=== PATIENT | male | born 1945 | race Caucasian/White ===

== ENCOUNTER → 2020-04-20 11:07 | Outpatient (CLI) | payer OTHER, SELFPAY ==
--- NOTE | ~2020-04-20 | US_ITS ---
EXAMINATION: US venous doppler LE RT EXAM DATE: 04/20/2020 11:47 INDICATION: Right leg pain. TECHNIQUE: Multiple grayscale, color flow and Doppler images of the right lower extremity deep venous system were obtained and reviewed. Comparison is made to prior examination from 06/09/2018. FINDINGS: The right common femoral, femoral and profunda veins demonstrate normal color flow, respira tory variation, augmentation and compressibility. Compressibility, color flow confirmed within the r ight popliteal, posterior tibial, peroneal, and greater saphenous veins. IMPRESSION: 1. No right lower extremity deep venous thrombosis. Reviewed, dictated and finalized at location B.
== END ==
PROVIDERS: PCP Emergency Medicine; Visit Provider Emergency Medicine
DX: M79.661 Pain in right lower leg (principal)
CPT/HCPCS: 93971

== ENCOUNTER 2021-01-20 10:32 | Emergency (ER) | payer OTHER, SELFPAY ==
[2021-01-20 10:45] VITALS: BP 132/83; PULSE 81; RESP 18; TEMP 36.7; O2SAT 97
[2021-01-20 10:54] VITALS: BP 132/83; PULSE 81; RESP 18; TEMP 36.7; O2SAT 97
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
--- NOTE | 2021-01-20 11:50 | PC.NURSE ---
i and d done by provider. discussed in detail about life in . denied any suicidal or homicidal ideations. daughter here and at bedside. [facility]. daughter does go to home daily.
== END 2021-01-20 11:56 | disposition home or self-care (01) ==
PROVIDERS: Emergency Provider Nurse Practitioner; PCP Emergency Medicine
DX: K61.1 Rectal abscess (principal); F32.9 Major depressive disorder, single episode, unspecified; Z87.891 Personal history of nicotine dependence; F41.9 Anxiety disorder, unspecified; I25.10 Atherosclerotic heart disease of native coronary artery without angina pectoris; J44.9 Chronic obstructive pulmonary disease, unspecified; E78.5 Hyperlipidemia, unspecified; I10 Essential (primary) hypertension; I73.9 Peripheral vascular disease, unspecified; Z95.820 Peripheral vascular angioplasty status with implants and grafts; G47.30 Sleep apnea, unspecified
CPT/HCPCS: 46050; 87070; 87075; 87076; 87205; 99213; G0463

== ENCOUNTER 2021-07-03 06:02 | Emergency (ER) | payer OTHER, SELFPAY ==
[2021-07-03] VITALS (8 sets, daily range): BP systolic 117–145; BP diastolic 67–89; PULSE 74–92; RESP 17–24; TEMP 35.9; O2SAT 91–95
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
--- NOTE | 2021-07-03 07:31 | PC.NURSE ---
Assumed care. Small amount of oozing to right gums.
[2021-07-03 08:02] LABS: Basophils Absolute Auto 0.1 K/mm3 (0.0-0.1); Basophils Percent Auto 0.9 % (0.2-1.2); Eosinophils Absolute Auto 0.2 K/mm3 (0-0.3); Eosinophils Percent Auto 1.8 % (0-4.4); Hematocrit 44.3 % (42.0-52.0); Hemoglobin 13.8 g/dL (14.0-18.0); Immature Granulocyte Absolute 0.06 K/mm3 (0.00-0.031); Immature Granulocyte Percent A 0.7 % (0-0.5); Lymphocytes Percent Auto 26.1 % (18.3-44.2); Mean Corpuscular HGB Conc 31.2 g/dl (32-36); Mean Corpuscular Hemoglobin 29.7 pg (26-34); Mean Corpuscular Volume 95.3 fl (80-100); Mean Platelet Volume 10.2 fl (7.4-10.4); Monocytes Absolute Auto 0.8 K/mm3 (0.1-0.6); Monocytes Percent Auto 8.3 % (2.6-8.5); Neutrophils Absolute Auto 5.7 K/mm3 (1.3-6.7); Neutrophils Percent Auto 62.2 % (45.5-73.1); Platelet Count Result 256 k/mm3 (150-375); Red Blood Count 4.65 M/mm3 (4.6-6.20); White Blood Count 9.2 K/mm3 (4.5-10.0)
[2021-07-03 08:29] LABS: Anion Gap 9 mmol/L (8-16); Blood Urea Nitrogen 21 mg/dL (9-20); Calcium 9.7 mg/dL (8.4-10.2); Carbon Dioxide 29 mmol/L (22-30); Chloride 103 mmol/L (98-107); Estimated CRCL calculation 102 ml/min; Estimated Glomerular Filt Rate > 60; Glucose 113 mg/dL (65-110); Potassium 4.3 mmol/L (3.4-5.0); Sodium 141 mmol/L (137-145)
== END 2021-07-03 08:46 | disposition home or self-care (01) ==
PROVIDERS: Emergency Provider Emergency Medicine; PCP Emergency Medicine
DX: K06.8 Other specified disorders of gingiva and edentulous alveolar ridge (principal); J44.9 Chronic obstructive pulmonary disease, unspecified; I25.10 Atherosclerotic heart disease of native coronary artery without angina pectoris; I73.9 Peripheral vascular disease, unspecified; E78.5 Hyperlipidemia, unspecified; I10 Essential (primary) hypertension; E66.9 Obesity, unspecified; Z68.33 Body mass index [BMI] 33.0-33.9, adult; G47.30 Sleep apnea, unspecified; F41.9 Anxiety disorder, unspecified; F32.9 Major depressive disorder, single episode, unspecified; F43.10 Post-traumatic stress disorder, unspecified; Z86.73 Personal history of transient ischemic attack (TIA), and cerebral infarction without residual deficits; Z95.5 Presence of coronary angioplasty implant and graft; Z79.82 Long term (current) use of aspirin; Z79.01 Long term (current) use of anticoagulants; Z87.891 Personal history of nicotine dependence
CPT/HCPCS: 36415; 80048; 85025; 99283

== ENCOUNTER 2021-12-31 15:08 | Emergency (ER) | payer OTHER, SELFPAY ==
--- NOTE | ~2021-12-31 | XR_ITS ---
EXAM: XR ribs LT 2V w CXR 2V HISTORY: FALL, ELBOW HIT LOWER RIBS, SHINGLE SPOTS LT LOWER BACK COMPARISON: X-ray chest 09/10/2019. FINDINGS: Stable pericardial calcification. Senescent changes in the lungs. Degenerative changes in the thoracic and lumbar spine. Normal bowel gas pattern. No osseous fracture or dislocation. IMPRESSION: No acute osseous finding in the left ribs. Reviewed, dictated and finalized at location K.
--- NOTE | ~2021-12-31 | CT_ITS ---
EXAMINATION: CT chest abdomen pelvis w con DATE: 12/31/2021 18:27 INDICATION: Fall, contusion over abdomen. TECHNIQUE: Computed tomography (CT) of the chest, abdomen, and pelvis was performed with 100 mL Omnip aque-350 intravenous contrast. Automated exposure control and iterative reconstruction technique were employed. The dose-length product was 1575.37 mGy-cm. COMPARISON: CTPA 09/11/2019. FINDINGS: CHEST: No thoracic aortic injury. No mediastinal hematoma. No pericardial effusion. No acute lung injury. No pleural effusion or pneumothorax. Emphysematous changes. Debris-filled and impacted bronchi, mostly within the right lower lobe bronchi , with scattered nodular and tree-in-bud opacities. Pericardial calcifications. Coronary artery calci fication. ABDOMEN/PELVIS: No solid organ injury. No evidence of bowel or mesenteric injury. No free fluid or free air. No retroperitoneal hematoma. Pelvic contents are atraumatic. Simple bilateral renal cysts and hypodensities that are too small to characterize. Bilateral renal va scular calcification versus nonobstructive calculi. Two saccular infrarenal abdominal aortic aneurysm s, measuring 3.2 and 3.3 cm. Bladder wall thickening likely due to outlet obstruction. Prostatomegaly . The rectum is dilated to 5.5 cm by formed stool. MUSCULOSKELETAL: No acute fracture. No fracture or traumatic malalignment of the thoracic or lumbar spine. IMPRESSION: 1. No traumatic finding detected in the chest, abdomen, or pelvis. 2. Pulmonary findings may represent chronic aspiration or atypical infection, including ABPA. 3. Saccular infrarenal abdominal aortic aneurysms measuring up to 3.3 cm in maximum transverse diamet er. Recommend follow-up CT abdomen pelvis with contrast in 3 years to assess for interval growth. 4. Possible fecal impaction. Reviewed, dictated and finalized at location K. IMPRESSION: 1. No traumatic finding detected in the chest, abdomen, or pelvis. 2. Pulmonary findings may represent chronic aspiration or atypical infection, i ncluding ABPA. 3. Saccular infrarenal abdominal aortic aneurysms measuring up to 3.3 cm in max imum transverse diameter. Recommend follow-up CT abdomen pelvis with contrast i n 3 years to assess for interval growth. 4. Possible fecal impaction.
[2021-12-31 15:10] VITALS: BP 137/78; PULSE 76; RESP 18; TEMP 36.6; O2SAT 96
--- NOTE | 2021-12-31 16:37 | PC.NURSE ---
EDP's made aware pt daughter out requesting pt be seen. [facility] for imaging received.
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
[2021-12-31] MEDS: LIDOCAINE 5% PATCH 1 PATCH TRANSDERM (17:32)
[2021-12-31 17:36] LABS: Basophils Absolute Auto 0.1 K/mm3 (0.0-0.1); Basophils Percent Auto 0.6 % (0.2-1.2); Eosinophils Absolute Auto 0.1 K/mm3 (0-0.3); Hematocrit 42.2 % (42.0-52.0); Hemoglobin 12.8 g/dL (14.0-18.0); Immature Granulocyte Absolute 0.06 K/mm3 (0.00-0.031); Immature Granulocyte Percent A 0.6 % (0-0.5); Lymphocytes Absolute Auto 2.75 K/mm3 (0.9-3.2); Lymphocytes Percent Auto 27.7 % (18.3-44.2); Mean Corpuscular HGB Conc 30.3 g/dl (32-36); Mean Corpuscular Hemoglobin 27.5 pg (26-34); Mean Corpuscular Volume 90.8 fl (80-100); Mean Platelet Volume 10.4 fl (7.4-10.4); Monocytes Absolute Auto 0.8 K/mm3 (0.1-0.6); Monocytes Percent Auto 7.8 % (2.6-8.5); Neutrophils Absolute Auto 6.2 K/mm3 (1.3-6.7); Neutrophils Percent Auto 62.3 % (45.5-73.1); Platelet Count Result 277 k/mm3 (150-375); Red Blood Count 4.65 M/mm3 (4.6-6.20); White Blood Count 9.9 K/mm3 (4.5-10.0)
[2021-12-31 17:45] LABS: Alanine Aminotransferase 29 U/L (4-50); Albumin Level 4.9 g/dL (3.5-5.1); Alkaline Phosphatase 116 U/L (38-126); Anion Gap 9 mmol/L (8-16); Aspartate Amino Transferase 31 U/L (17-59); Bilirubin,Total 0.9 mg/dL (0.2-1.3); Blood Urea Nitrogen 26 mg/dL (9-20); Calcium 9.3 mg/dL (8.4-10.2); Carbon Dioxide 28 mmol/L (22-30); Chloride 103 mmol/L (98-107); Estimated CRCL calculation 90 ml/min; Estimated Glomerular Filt Rate > 60; Glucose 92 mg/dL (65-110); Potassium 4.4 mmol/L (3.4-5.0); Sodium 140 mmol/L (137-145)
[2021-12-31 17:46] LABS: INR 1.5; Prothrombin Time 17.4 Seconds (11.1-14.7)
== END 2021-12-31 19:33 | disposition home or self-care (01) ==
PROVIDERS: Physician Assistant; Emergency Provider Emergency Medicine; PCP Emergency Medicine
DX: B02.9 Zoster without complications (principal); I48.91 Unspecified atrial fibrillation; J44.9 Chronic obstructive pulmonary disease, unspecified; I25.10 Atherosclerotic heart disease of native coronary artery without angina pectoris; F41.9 Anxiety disorder, unspecified; G89.29 Other chronic pain; F32.A Depression, unspecified; E78.5 Hyperlipidemia, unspecified; I10 Essential (primary) hypertension; Z79.899 Other long term (current) drug therapy; Z79.01 Long term (current) use of anticoagulants; Z79.82 Long term (current) use of aspirin; Z86.73 Personal history of transient ischemic attack (TIA), and cerebral infarction without residual deficits; Z87.891 Personal history of nicotine dependence
CPT/HCPCS: 36415; 71046; 71100; 71260; 74177; 80053; 85025; 85610; 99284; A9270; Q9967

== ENCOUNTER 2022-03-01 09:42 | Emergency (ER) | payer OTHER, SELFPAY ==
--- NOTE | ~2022-03-01 | XR_ITS ---
XR chest 1V portable 03/01/2022 10:20 Indication: Shortness of breath and cough Procedure: AP portable chest Comparison: Comparison to multiple prior studies sequentially, with oldest reviewed study dated 06/04. Findings: Cardiomegaly. Bibasilar airspace disease, consistent with pneumonia. No pleural effusion or pneumothorax. No acute osseous abnormality. Stable pericardial calcification. Cannot exclude constri ctive pericarditis. Impression: 1: Bibasilar airspace disease, consistent with pneumonia. Reviewed, dictated and finalized at location A. Impression: 1: Bibasilar airspace disease, consistent with pneumonia.
[2022-03-01 09:51] VITALS: BP 117/61; PULSE 95; RESP 14; TEMP 37.2; O2SAT 99
[2022-03-01 09:59] VITALS: PULSE 100; RESP 24
[2022-03-01 10:00] VITALS: BP 125/59; PULSE 79; RESP 20; O2SAT 95
[2022-03-01 10:01] VITALS: PULSE 83; RESP 16; O2SAT 96
--- NOTE | 2022-03-01 10:10 | ECG_ITS ---
Measurements Intervals [place] Rate: 77 P: TN: 0 QRS: 94 QRSD: 136 T: 44 QT: 385 QTc: 438 Interpretive Statements ATRIAL FIBRILLATION RIGHT BUNDLE BRANCH BLOCK [120+ ms QRS DURATION, UPRIGHT V1, 40+ ms S IN I/aVL/V4/V5/V6] COMPARED TO ECG 09/10/2019 23:02:16 THE HEART RATE IS SLOWER AND ATRIAL FIBRILLATION IS PRESENT Electronically Signed On 03-01-2022 18:02:37 CDT by Archana Lazar M.D.
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
[2022-03-01 10:22] LABS: Basophils Percent Auto 0.4 % (0.2-1.2); Eosinophils Percent Auto 0.1 % (0-4.4); Hematocrit 37.6 % (42.0-52.0); Hemoglobin 11.8 g/dL (14.0-18.0); Immature Granulocyte Absolute 0.04 K/mm3 (0.00-0.031); Immature Granulocyte Percent A 0.5 % (0-0.5); Lymphocytes Absolute Auto 0.26 K/mm3 (0.9-3.2); Lymphocytes Percent Auto 3.3 % (18.3-44.2); Mean Corpuscular HGB Conc 31.4 g/dl (32-36); Mean Corpuscular Hemoglobin 27.7 pg (26-34); Mean Corpuscular Volume 88.3 fl (80-100); Mean Platelet Volume 11.3 fl (7.4-10.4); Monocytes Absolute Auto 0.5 K/mm3 (0.1-0.6); Neutrophils Percent Auto 89.7 % (45.5-73.1); Platelet Count Result 149 k/mm3 (150-375); Red Blood Count 4.26 M/mm3 (4.6-6.20); Red Cell Distribution Width 16.8 % (11.5-14.5); White Blood Count 7.8 K/mm3 (4.5-10.0)
[2022-03-01 10:33] LABS: Lactic Acid Reflex 1.3 mmol/L (0.7-2.0)
[2022-03-01 10:35] LABS: Alanine Aminotransferase 26 U/L (6-50); Albumin Level 4.3 g/dL (3.5-5.1); Alkaline Phosphatase 88 U/L (38-126); Anion Gap 7 mmol/L (8-16); Aspartate Amino Transferase 25 U/L (17-59); Blood Urea Nitrogen 20 mg/dL (9-20); Calcium 8.7 mg/dL (8.4-10.2); Carbon Dioxide 26 mmol/L (22-30); Chloride 103 mmol/L (98-107); Estimated CRCL calculation 91 ml/min; Estimated Glomerular Filt Rate > 60; Glucose 101 mg/dL (65-110); Lipase 32 U/L (23-300); Potassium 3.9 mmol/L (3.4-5.0); Sodium 136 mmol/L (137-145)
[2022-03-01 10:47] LABS: NT Pro B Type Natriuretic Pept 1140 pg/mL (5-100); Troponin I < 0.012 ng/mL (0.000-0.034)
[2022-03-01 11:06] LABS: SARS-CoV-2 RNA PCR Positive
[2022-03-01] MEDS: FUROSEMIDE INJ 40 MG/4 ML VIAL IV PUSH (11:36)
[2022-03-01 13:20] VITALS: BP 120/59; PULSE 82; RESP 18; O2SAT 96
== END 2022-03-01 13:22 | disposition home or self-care (01) ==
PROVIDERS: Emergency Provider Nurse Practitioner Family; PCP Emergency Medicine
DX: U07.1 COVID-19 (principal); J12.82 Pneumonia due to coronavirus disease 2019; J44.9 Chronic obstructive pulmonary disease, unspecified; I50.9 Heart failure, unspecified; I25.10 Atherosclerotic heart disease of native coronary artery without angina pectoris; E78.5 Hyperlipidemia, unspecified; I11.0 Hypertensive heart disease with heart failure; I73.9 Peripheral vascular disease, unspecified; I31.9 Disease of pericardium, unspecified; E66.9 Obesity, unspecified; Z68.30 Body mass index [BMI] 30.0-30.9, adult; Z95.5 Presence of coronary angioplasty implant and graft; F41.9 Anxiety disorder, unspecified; F32.A Depression, unspecified; F43.10 Post-traumatic stress disorder, unspecified; Z86.73 Personal history of transient ischemic attack (TIA), and cerebral infarction without residual deficits; Z79.82 Long term (current) use of aspirin; G47.30 Sleep apnea, unspecified; Z87.891 Personal history of nicotine dependence; I48.91 Unspecified atrial fibrillation; I45.10 Unspecified right bundle-branch block
CPT/HCPCS: 36415; 71045; 80053; 83605; 83690; 83880; 84484; 85025; 93005; 96365; 96375; 99284; C9803; J1940; J1956; U0003; U0005

== ENCOUNTER 2022-12-30 14:40 | Emergency (ER) | payer OTHER, SELFPAY ==
--- NOTE | ~2022-12-30 | XR_ITS ---
EXAMINATION: XR tibia fibula RT 2V INDICATION: Right leg pain TECHNIQUE: Two views of the right tibia and fibula are obtained on four radiographs. COMPARISON: None available FINDINGS: Bone alignment is normal. There is no fracture. There is mild osteoarthritis of the knee an d ankle. Minimal soft tissue swelling is noted. There is calcified atherosclerosis. IMPRESSION: 1. No acute osseous abnormality. Reviewed, dictated and finalized at location F.
--- NOTE | ~2022-12-30 | US_ITS ---
EXAMINATION: US venous doppler LE RT DATE: 12/30/2022 16:01 INDICATION: Right lower limb pain and swelling TECHNIQUE: Jaramillo scale images without and with compression and Doppler images of the right lower extre mity veins were obtained. COMPARISON: 04/20/2020 FINDINGS: The right common femoral vein, profunda femoral vein, femoral vein, popliteal vein, peronea l trunk, posterior tibial veins, and greater saphenous vein are patent. There is an approximately 3.0 x 1.3 cm soft tissue hematoma in the area of clinical concern. IMPRESSION: 1. Patent right lower extremity veins. No evidence of deep venous thrombosis. 2. Soft tissue hematoma in the area of clinical concern. Reviewed, dictated and finalized at location F.
[2022-12-30 14:48] VITALS: BP 151/67; PULSE 69; RESP 16; TEMP 36.7; O2SAT 97
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
== END 2022-12-30 16:53 | disposition home or self-care (01) ==
PROVIDERS: Emergency Provider Physician Assistant; PCP Emergency Medicine
DX: S80.11XA Contusion of right lower leg, initial encounter (principal); Z87.891 Personal history of nicotine dependence; F41.9 Anxiety disorder, unspecified; I25.10 Atherosclerotic heart disease of native coronary artery without angina pectoris; J44.9 Chronic obstructive pulmonary disease, unspecified; F32.A Depression, unspecified; I10 Essential (primary) hypertension; E78.5 Hyperlipidemia, unspecified; V58.4XXA Person boarding or alighting a pick-up truck or van injured in noncollision transport accident, initial encounter
CPT/HCPCS: 73590; 93971; 99284

== ENCOUNTER 2023-01-08 13:40 | Emergency (ER) | payer OTHER, SELFPAY ==
[2023-01-08 13:49] VITALS: BP 124/76; PULSE 81; RESP 18; TEMP 36.6; O2SAT 100
[2023-01-08 14:12] LABS: Basophils Absolute Auto 0.1 K/mm3 (0.0-0.1); Basophils Percent Auto 0.7 % (0.2-1.2); Eosinophils Absolute Auto 0.2 K/mm3 (0-0.3); Eosinophils Percent Auto 1.8 % (0-4.4); Hematocrit 39.8 % (42.0-52.0); Hemoglobin 12.2 g/dL (14.0-18.0); Immature Granulocyte Absolute 0.04 K/mm3 (0.00-0.031); Immature Granulocyte Percent A 0.5 % (0-0.5); Lymphocytes Absolute Auto 1.79 K/mm3 (0.9-3.2); Mean Corpuscular HGB Conc 30.7 g/dl (32-36); Mean Corpuscular Hemoglobin 29.1 pg (26-34); Mean Platelet Volume 10.9 fl (7.4-10.4); Monocytes Absolute Auto 0.7 K/mm3 (0.1-0.6); Monocytes Percent Auto 8.2 % (2.6-8.5); Neutrophils Absolute Auto 5.4 K/mm3 (1.3-6.7); Neutrophils Percent Auto 66.8 % (45.5-73.1); Platelet Count Result 216 k/mm3 (150-375); Red Blood Count 4.19 M/mm3 (4.6-6.20); Red Cell Distribution Width 14.6 % (11.5-14.5); White Blood Count 8.1 K/mm3 (4.5-10.0)
[2023-01-08 14:19] LABS: Alanine Aminotransferase 30 U/L (6-50); Albumin Level 4.4 g/dL (3.5-5.1); Alkaline Phosphatase 114 U/L (38-126); Anion Gap 2 mmol/L (8-16); Aspartate Amino Transferase 29 U/L (17-59); Bilirubin,Total 1.1 mg/dL (0.2-1.3); Blood Urea Nitrogen 24 mg/dL (9-20); Calcium 8.9 mg/dL (8.4-10.2); Carbon Dioxide 37 mmol/L (22-30); Chloride 103 mmol/L (98-107); Estimated Glomerular Filt Rate > 60; Glucose 98 mg/dL (65-110); Potassium 4.4 mmol/L (3.4-5.0); Sodium 142 mmol/L (137-145)
[2023-01-08 14:20] LABS: INR 1.6; Prothrombin Time 19.8 Seconds (11.1-14.7)
[2023-01-08 14:37] VITALS: BP 136/71; PULSE 72; RESP 18; O2SAT 97
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
[2023-01-08 16:59] VITALS: BP 154/98; PULSE 90; RESP 18; O2SAT 96
== END 2023-01-08 17:16 | disposition home or self-care (01) ==
PROVIDERS: Emergency Provider Preventive Medicine Aerospace Medicine; PCP Emergency Medicine
DX: L03.115 Cellulitis of right lower limb (principal); L02.415 Cutaneous abscess of right lower limb; I48.91 Unspecified atrial fibrillation; I25.10 Atherosclerotic heart disease of native coronary artery without angina pectoris; J44.9 Chronic obstructive pulmonary disease, unspecified; I10 Essential (primary) hypertension; E78.5 Hyperlipidemia, unspecified; E66.9 Obesity, unspecified; G47.30 Sleep apnea, unspecified; Z86.73 Personal history of transient ischemic attack (TIA), and cerebral infarction without residual deficits; F41.9 Anxiety disorder, unspecified; F43.10 Post-traumatic stress disorder, unspecified; Z87.891 Personal history of nicotine dependence; Z79.82 Long term (current) use of aspirin; Z79.01 Long term (current) use of anticoagulants
CPT/HCPCS: 10060; 36415; 80053; 85025; 85610; 99283